=== PATIENT | female | born 2000 | race Caucasian/White ===

== ENCOUNTER 2018-10-07 13:05 | Emergency (ER) | payer OTHER ==
[2018-10-07] MEDS: LORAZEPAM 1 MG TAB PO (14:07)
== END 2018-10-07 15:31 | disposition home or self-care (01) ==
LOC: FTE 13:05
DX: F41.9 Anxiety disorder, unspecified (principal); Z63.8 Other specified problems related to primary support group
CPT/HCPCS: 93005; 99283-25

== ENCOUNTER 2018-11-16 07:08 | Emergency (ER) | payer OTHER | END 2018-11-16 08:03 | disposition home or self-care (01) | LOC: FTE 07:08 | DX: S80.861A Insect bite (nonvenomous), right lower leg, initial encounter (principal); S80.862A Insect bite (nonvenomous), left lower leg, initial encounter; W57.XXXA Bitten or stung by nonvenomous insect and other nonvenomous arthropods, initial encounter; Y92.9 Unspecified place or not applicable | CPT/HCPCS: 99283; Z7502 ==

== ENCOUNTER 2018-12-01 16:10 | Emergency (ER) | payer OTHER | END 2018-12-01 16:49 | disposition home or self-care (01) | LOC: FTE 16:10 | DX: L03.113 Cellulitis of right upper limb (principal) | CPT/HCPCS: 99283; Z7502 ==